=== PATIENT | male | born 2000 | race Caucasian/White ===

== ENCOUNTER → 2019-01-31 | Emergency (ER) | payer OTHER, BC ==
[~2019-01-31] VITALS: Ht 193 cm; Wt 90.7 kg
[~2019-01-31] MED LIST: CEPH-507 PO; TETANUS,DIPTH,PERTUSS P/F (BOOSTRIX) 0.5 ML VIAL IM ONE
--- NOTE | 2019-01-31 16:28 | ED Upper Extremity ---
General Chief Complaint: Laceration Stated Complaint: FINGER LAC Nursing Triage Note: PT AMBULATED TO TRIAGE, PT HAS LAC TO L 1ST FINGER FROM POWERSAW AT WORK Nursing Sepsis Screen: No Definite Risk Source: patient Exam Limitations: no limitations History of Present Illness Date Seen by Provider: Jan 31, 2019 Time Seen by Provider: 16:24 Initial Comments Sent to ER from occupational health with laceration to the radial side PIP joint left pointer finger. This occurred at work. Occupational health had concerns that this may have injured ligament or tendon. Onset: just prior to arrival Severity: moderate Pain/Injury Location: left 2nd finger Modifying Factors: Worse With Movement Allergies and Home Medications Allergies Uncoded Allergies: SULFA (Allergy, Unknown, 01/31/19) Home Medications No Active Prescriptions or Reported Meds Patient Home Medication List Home Medication List Reviewed: Yes Review of Systems Constitutional: see HPI EENTM: see HPI Respiratory: no symptoms reported Cardiovascular: no symptoms reported Genitourinary: no symptoms reported Musculoskeletal: no symptoms reported Skin: see HPI Psychiatric/Neurological: No Symptoms Reported Past Gtkknmo-Ncmvzi-Hwhrli Hx Patient Social History Alcohol Use: Denies Use Recreational Drug Use: No Smoking Status: Never a Smoker Recent Foreign Travel: No Contact w/Someone Who Travel: No Recent Infectious Disease Expo: No Recent Hopitalizations: No Immunizations Up To Date Tetanus Booster (TDap): More than 5yrs Seasonal Allergies Seasonal Allergies: No Past Medical History Surgeries: No Respiratory: No Cardiac: No Neurological: No Genitourinary: No Gastrointestinal: No Musculoskeletal: No Endocrine: No HEENT: No Cancer: No Psychosocial: No Integumentary: No Blood Disorders: No Physical Exam Vital Signs Vital Signs - First Documented 01/31/19 16:08 Temp 97.3 Pulse 83 Resp 18 B/P (MAP) 144/77 (99) Pulse Ox 100 Capillary Refill : Less Than 3 Seconds Height, Weight, BMI Height: 6'4.00" Weight: 200lbs. oz. [id number]; BMI Method:Stated General Appearance: WD/WN, no apparent distress HEENT: PERRL/EOMI, normal ENT inspection Neck: non-tender, full range of motion Respiratory: no respiratory distress, no accessory muscle use Shoulder: normal inspection, non-tender Elbow/Forearm: normal inspection, non-tender Hand: Left, laceration (there is a superficial maceration of the skin to the radial side of the PIP joint left pointer finger down to the dermis but not the subcutaneous tissues. Normal sensation distally. He can fully flex and extend the finger) Neurologic/Tendon: normal sensation, normal motor functions, normal tendon functions Neurologic/Psychiatric: alert, normal mood/affect, oriented x 3 Progress/Results/Core Measures Results/Orders Vital Signs/I&O 01/31/19 16:08 Temp 97.3 Pulse 83 Resp 18 B/P (MAP) 144/77 (99) Pulse Ox 100 Blood Pressure Mean: 99 Departure Communication (Admissions) Dr. Solorio has evaluated the wound and agrees with plan of care. Impression Primary Impression: Superficial laceration Disposition: HOME, SELF-CARE Condition: Stable Departure-Patient Inst. Decision time for Depature: 16:27 Referrals: NO,LOCAL PHYSICIAN (PCP/Family) Primary Care Physician Patient Instructions: Wound Care Add. Discharge Instructions: 1. Return to ER for any redness or swelling of the finger. Keep this covered with a Band-Aid for the next 3-5 days. Antibiotics as directed. All discharge instructions reviewed with patient and/or family. Voiced understanding. Scripts Cephalexin (Keflex) 500 Mg Capsule 500 MG PO TID, #9 CAP Prov: ROSA REDDY APRN 01/31/19 ROSA REDDY APRN Jan 31, 2019 16:28
[2019-01-31 16:35] VITALS: BP 144/77
== END | disposition home or self-care (01) ==
LOC: EDUNIT# 15:58 → ER 15:59
DX: S61.211A Laceration without foreign body of left index finger without damage to nail, initial encounter (principal); Z88.2 Allergy status to sulfonamides; W29.8XXA Contact with other powered hand tools and household machinery, initial encounter; Y92.59 Other trade areas as the place of occurrence of the external cause; Y99.0 Civilian activity done for income or pay
CPT/HCPCS: 90471; 90715; 99284